=== PATIENT | male | born 1965 | race Caucasian/White ===

== ENCOUNTER 2017-01-19 09:21 | Day surgery (SDC) | payer BC ==
[~2017-01-19 09:21] MED LIST: Ciprofloxacin/Dexamethasone 0.3-0.1% Otic Susp 7.5 ML Bottle ONE; EPINEPHrine 1:1000 1 MG/ML SDV ONE; Gelatin Sponge,Absorbable 12-7 mm Sponge TOP ONE; Lactated Ringers 1,000 ML IV SCH; Lidocaine 2% with EPINEPHrine 1:100,000 20 ML MDV ONE
--- NOTE | 2017-01-19 10:28 | PCM.HPR ---
H & P Addendum review - H & P Addendum Review Date of Original H & P: 01/03/17 Date Reviewed: 01/19/17 Time Reviewed: 11:20 Patient was examined: No Changes
[2017-01-19] MEDS ORDERED: Propofol 200 MG/20 ML SDV ONE (10:42)
[2017-01-19] MEDS ORDERED: fentaNYL 100 MCG/2 ML SDV ONE ×3 (10:42→15:55)
[2017-01-19] MEDS ORDERED: Midazolam 1 MG/ML 2 ML SDV ONE (10:42)
[2017-01-19] MEDS ORDERED: Rocuronium 10 MG/ML 10 ML Syringe ONE (10:43)
[2017-01-19] MEDS ORDERED: Ondansetron 4 MG/2 ML SDV ONE ×2 (10:43→16:11)
[2017-01-19] MEDS ORDERED: Lidocaine 2% 5 ML SDV ONE (10:43)
[2017-01-19] MEDS ORDERED: Succinylcholine/Normal Saline 200 MG/10 ML Syringe ONE (10:43)
[2017-01-19] MEDS ORDERED: Dexamethasone 4 MG/ML 5 ML MDV ONE (10:43)
[2017-01-19] MEDS ORDERED: Phenylephrine 1% 10 MG/ML SDV ONE ×2 (10:44→13:45)
--- NOTE | 2017-01-19 10:44 | PCM.PREANE ---
Preanesthetic Assessment - Anesthesia/Transfusion/Family Hx Anesthesia History: Prior Anesthesia Without Reaction (appy and finger replant) Family History of Anesthesia Reaction: No Transfusion History: No Prior Transfusion(s) - Review of Systems General: No Symptoms Pulmonary: No Symptoms Cardiovascular: No Symptoms Gastrointestinal: No symptoms Neurological: No Symptoms Other: Reports: None - Physical Assessment NPO Status Date: 01/18/17 Height: 1.78 m Weight: 84.1 kg Mental Status: Alert & Oriented x3 Airway Class: Mallampati = 2 Dentition: Reports: Missing Tooth/Teeth (missing several maxillary teeth) ROM/Head Extension: Full Lungs: Clear to auscultation, Normal respiratory effort Cardiovascular: Regular Rate, Regular Rhythm - Allergies Allergies/Adverse Reactions: Allergies Allergy/AdvReac Type Severity Reaction Status Date / Time No Known Allergies Allergy Verified 01/14/17 11:43 - Anesthesia Plan Pre-Op Medication Ordered: None - Acknowledgements Anesthesia Type Planned: General Anesthesia Pt an Appropriate Candidate for the Planned Anesthesia: Yes Alternatives and Risks of Anesthesia Discussed w Pt/Guardian: Yes Pt/Guardian Understands and Agrees with Anesthesia Plan: Yes PreAnesthesia Questionnaire Other HEENT History: dental pain Cardiovascular History: Reports: High Cholesterol Respiratory History: Reports: None Gastrointestinal History: Reports: GERD Genitourinary History: Reports: None Musculoskeletal History: Reports: None Other Neuro History: post herpetic neuralgia RLE, on gabipentin Psychiatric History: Reports: None Endocrine/Metabolic History: Reports: None Hematologic History: Reports: None Immunologic History: Reports: None Oncologic (Cancer) History: Reports: None Dermatologic History: Reports: None - Infectious Disease History Infectious Disease History: Reports: Chicken Pox, Measles - Past Surgical History Head Surgeries/Procedures: Reports: None HEENT Surgical History: Reports: Naso-Sinus Surgery Cardiovascular Surgical History: Reports: None Respiratory Surgical History: Reports: None GI Surgical History: Reports: Appendectomy Male Surgical History: Reports: None Endocrine Surgical History: Reports: None Neurological Surgical History: Reports: None Musculoskeletal Surgical History: Reports: None Other Musculoskeletal Surgeries/Procedures:: finger surgery (?replant) Oncologic Surgical History: Reports: None Dermatological Surgical History: Reports: None - SUBSTANCE USE Smoking Status *Q: Current Every Day Smoker Tobacco Use Within Last Twelve Months: Cigarettes Recreational Drug Use History: No - HOME MEDS Home Medications: Home Meds Aspirin [Adult Low Dose Aspirin EC] 81 mg PO DAILY 01/14/17 [History] Gabapentin [Neurontin] 300 mg PO BID 01/14/17 [History] Multivitamin [Men's Multi-Vitamin] 1 tab PO DAILY 01/14/17 [History] Omeprazole 20 mg PO DAILY 01/14/17 [History] atorvaSTATin Calcium [Atorvastatin Calcium] 20 mg PO DAILY 01/14/17 [History] rOPINIRole [Requip] 0.5 mg PO DAILY 01/14/17 [History] - CURRENT (IN HOUSE) MEDS Current Meds: Current Medications Lactated Ringer's (Ringers, Lactated) 1,000 mls @ 100 mls/hr IV ASDIRECTED OMKAR Discontinued Medications Ciprofloxacin/Dexamethasone (Ciprodex Otic Susp) Confirm Administered Dose 7.5 ml .ROUTE .STK-MED ONE Stop: 01/19/17 07:15 Epinephrine HCl (Adrenalin 1:1000) Confirm Administered Dose 2 mg .ROUTE .STK- MED ONE Stop: 01/19/17 07:16 Gelatin (Gelfoam 12-7 Mm) Confirm Administered Dose 1 each TOP .STK-MED ONE Stop: 01/19/17 07:15 Lidocaine/Epinephrine (Xylocaine 2% With Epinephrine 1:100,000) Confirm Administered Dose 20 ml .ROUTE .STK-MED ONE Stop: 01/19/17 07:16
[2017-01-19] MEDS ORDERED: Neostigmine Methylsulfate 1 MG/ML 5 ML Syringe ONE (10:49)
[2017-01-19] MEDS ORDERED: Mineral Oil/Petrolatum Ophth Oint 3.5 GM Tube ONE (10:49)
--- NOTE | 2017-01-19 12:09 | PCM.OPNOTE ---
- General Post-Op/Procedure Note Condition: Good Free Text/Narrative:: Diagnosis: Right tympanic membrane perforation; bilateral sensorineural hearing loss Procedure: Right tympanoplasty [ CPT 85873] Surgeon: Adriana Crane MD Anesthesia: GA Anesthesiologist: Dr Bonilla Date of procedure: 01/19/2017 Indications: Man sustained a right traumatic tympanic membrane perforation in November of this year. He developed hearing loss and right-sided tinnitus. He was conservatively managed over these months. Additionally he complained of pressure in the right ear. The perforation failed to close spontaneously and in fact became marginally larger in size. A decision was made to repair this with. Risks benefits and alternatives were discussed with the patient and informed consent was obtained for this procedure today. Findings: Right tympanic membrane perforation - approximately 20%; posterior inferior central; All ossicles intact and ISJ intact ; gentle movement of incus transmitted to the joint. Operation details: The patient was brought to the operating room. General anesthesia was administered with an endotracheal tube. He was appropriately positioned. An exam under microscope was performed-findings as above. A transcanal injection of 2% lidocaine with 1: 100, 000 epinephrine was performed. Postauricular area was also injected. A total of 2 mils was used. The part was prepped and draped in a standard sterile fashion. The microscope was brought in. A horizontal transverse canal wall incision was made with a round knife approximately 5 mm lateral to the annulus starting at 6 o'clock position and extending to 12 o ' clock. A cotton wool wall soaked in 1:1000 epinephrine was then left in the ear canal. Microscope was moved out. Postauricular incision was made extending from the root of pinna superiorly to the level of the floor of external auditory canal inferiorly approximately 5 mm from the post auricular groove with a 15 blade. Superiorly dissection was carried out with a hemostat and temporalis fascia was exposed. A 3 pronged self- retaining retractor was applied. Further retraction was done with the Sen retractor. Incision in the fascia was made with a 15 blade. Fascia was freed from the underlying temporalis muscle with a [place] elevator. An appropriately sized piece of fascia was removed with iris scissors. Hemostasis was ensured. The graft was cleaned and left to dry up on a block. Further post auricular dissection was performed and the U-shaped fascio periosteal flap adjacent to the external auditory canal was made. This flap was further dissected with freer and periosteal dissector , continuing this dissection over to the canal wall till the previously made horizontal transcanal incision was reached. At this point the cotton wool was removed, a quarter inch Hoolehua drain was introduced and held in place with a clamp to hold the pinna forward. Also a left sided plester self retaining retractor was applied to help retain the pinna forward. Edges of the perforation were freshened with a curved needle. Tympanomeatal flap was elevated with a round knife and flap elevator, till the canal wall was seen dipping at the annulus. Annulus was freed inferiorly and a tympanotomy was performed. Middle ear mucosa was resected with a needle. The elevation of the annulus was performed superiorly up to 12:00 position. The ossicles were intact. The tympanic membrane was dissected off the handle of malleus. Middle ear was packed with Gelfoam soaked in Ciprodex. The temporalis fascia graft was appropriately sized and introduced as an underlay technique, overlying the handle of malleus. All edges of the graft were tucked medial to the annulus and edges of the perforation. The tympanomeatal flap was laid back over the graft. Further pieces of Gelfoam soaked in Ciprodex were placed over the graft and tympanic membrane. The Ambrose drain was removed and the lateral flap was laid back carefully over the canal wall. Outer aspect of the external canal was packed with Adaptic dressing soaked in bacitracin ointment as a roll and then as a strip dressing. Postauricular wound was sutured in layers- flap with 3-0 Vicryl, fascia and subcutaneous tissue and with 3-0 Vicryl and subcuticular 4-0 Monocryl. Dermabond was applied to the skin.. Complete hemostasis was ensured. A pressure dressing was applied. This concluded the procedure. The patient was turned over to the anesthesia team for recovery. Specimens: none IV fluids: 700 ml Blood loss : 5 ml Blood products: nil Disposition: PACU for recovery Follow up: In 1 day for removal of head bandage.
[2017-01-19] MEDS ORDERED: Octyl 2-Cyanoacrylate 1 Tube ONE (14:10)
[2017-01-19] MEDS ORDERED: fentaNYL 100 MCG/2 ML SDV IVPUSH PRN (15:05)
--- NOTE | 2017-01-19 17:19 | PCM.POSTAN ---
POST ANESTHESIA ASSESSMENT - MENTAL STATUS Mental Status: alert, oriented - RESPIRATORY Respiratory Status: respiratory rate WNL, airway patent, O2 saturation stable - CARDIOVASCULAR CV Status: pulse rate WNL, blood pressure stable - GASTROINTESTINAL GI Status: no symptoms - PAIN Pain Score: 0 - POST OP HYDRATION Hydration Status: adequate & stable
--- NOTE | 2017-01-19 17:32 | PCM48HPAN ---
Post Anesthesia Note - EVALUATION WITHIN 48HRS OF ANESTHETIC Vital Signs in Normal Range: Yes Patient Participated in Evaluation: Yes Respiratory Function Stable: Yes Airway Patent: Yes Cardiovascular Function Stable: Yes Hydration Status Stable: Yes Pain Control Satisfactory: Yes Nausea and Vomiting Control Satisfactory: Yes Mental Status Recovered: Yes
[2017-01-19 18:20] VITALS: BP 113/60
== END 2017-01-19 18:10 | disposition home or self-care (01) ==
LOC: MW.SDS 09:21
PROVIDERS: ATTEND Otolaryngology
DX: H72.91 Unspecified perforation of tympanic membrane, right ear (principal); H90.3 Sensorineural hearing loss, bilateral; H93.11 Tinnitus, right ear; Z79.82 Long term (current) use of aspirin; F17.200 Nicotine dependence, unspecified, uncomplicated
CPT/HCPCS: 69643; A9270; J0171; J1100; J2250; J2370; J2405; J3010; J7120; 00120; J2704